=== PATIENT | female | born 1960 | race Caucasian/White ===

== ENCOUNTER → 2024-03-24 14:12 | Outpatient (REF) | payer BC, SELFPAY | LOC: RAD 14:12 | PROVIDERS: ATTENDING PHYSICIAN Chiropractor; FAMILY PHYSICIAN Family Medicine | DX: M54.2 Cervicalgia (principal); M54.51 Vertebrogenic low back pain | CPT/HCPCS: 72050; 72110 ==

== ENCOUNTER → 2024-12-15 15:28 | Outpatient (REF) | payer BC, SELFPAY | LOC: WDC 15:28 | PROVIDERS: ATTENDING PHYSICIAN Nurse Practitioner Adult Health; FAMILY PHYSICIAN Family Medicine | DX: Z12.31 Encounter for screening mammogram for malignant neoplasm of breast (principal) | CPT/HCPCS: 77063; 77067 ==